=== PATIENT | male | born 1945 | race Caucasian/White ===

== ENCOUNTER 2016-12-11 05:21 | Inpatient (IN) | payer MEDICARE, BC ==
[2016-12-11] MEDS ORDERED: Lactated Ringers 1,000 ML IV ONE (06:45)
[2016-12-11] MEDS ORDERED: Gentamicin 40 MG/ML 2 ML Vial ONE (06:50)
[2016-12-11] MEDS ORDERED: fentaNYL 100 MCG/2 ML SDV ONE ×2 (07:12→08:54)
[2016-12-11] MEDS ORDERED: Midazolam 1 MG/ML 5 ML SDV ONE (07:12)
[2016-12-11] MEDS ORDERED: Propofol 200 MG/20 ML SDV ONE ×2 (07:12→07:13)
[2016-12-11] MEDS ORDERED: Midazolam 1 MG/ML 2 ML SDV ONE (07:47)
[2016-12-11] MEDS ORDERED: Lactated Ringers 1,000 ML IV SCH (08:00)
[2016-12-11] MEDS ORDERED: ceFAZolin 2 GM in Sodium Chloride 0.9% 50 ML IV ONE (09:15)
[2016-12-11] MEDS ORDERED: Tranexamic Acid 1,000 MG in Sodium Chloride 0.9% 50 ML IV SCH ×2 (09:15→10:15)
[2016-12-11] MEDS ORDERED: Zolpidem 5 MG Tab PO PRN (09:23)
[2016-12-11] MEDS ORDERED: Docusate Sodium 100 MG Cap PO PRN (09:23)
[2016-12-11] MEDS ORDERED: Aluminum Hydroxide/Magnesium Hydroxide/Simethicone Susp 30 ML Cup PO PRN (09:23)
[2016-12-11] MEDS ORDERED: Ondansetron 4 MG/2 ML SDV IVPUSH PRN (09:23)
[2016-12-11] MEDS ORDERED: diphenhydrAMINE 50 MG/ML SDV IVPUSH PRN (09:23)
[2016-12-11] MEDS ORDERED: Sennosides 8.6 MG Tab PO PRN (09:23)
[2016-12-11] MEDS ORDERED: Naloxone 0.4 MG/ML SDV IVPUSH PRN (09:23)
[2016-12-11] MEDS ORDERED: Bisacodyl 5 MG Tab PO PRN (09:23)
[2016-12-11] MEDS ORDERED: Magnesium Hydroxide 400 MG/5 ML Susp 30 ML Cup PO PRN (09:23)
[2016-12-11] MEDS ORDERED: ceFAZolin 2 GM in Premix Bag 1 BAG IV SCH (10:00)
[2016-12-11] MEDS ORDERED: fentaNYL 100 MCG/2 ML SDV IVPUSH ONE (10:10)
--- NOTE | 2016-12-11 10:15 | CR ---
Knee 1V or 2V Lt FINDINGS: The patient is status post knee arthroplasty. The prosthetic components appear well-aligne d and seated. There is a small amount of air and fluid within the joint space. IMPRESSION: Status post knee arthroplasty without evidence for complication.
[2016-12-11] MEDS: Ketorolac 30 MG/ML SDV IVPUSH PRN (11:23)
[2016-12-11] MEDS: Morphine 2 MG/ML Syringe IVPUSH PRN ×4 (12:42→22:16)
[2016-12-11] MEDS: traMADol 50 MG Tab PO PRN ×2 (12:42→19:20)
--- NOTE | 2016-12-11 13:56 | OR ---
DATE OF PROCEDURE: 12/11/2016 PREOPERATIVE DIAGNOSIS: Left knee primary osteoarthritis. POSTOPERATIVE DIAGNOSIS: Left knee primary osteoarthritis. PROCEDURE: Left knee total knee arthroplasty. [employer]IC: EB Smith. ANESTHESIA: Spinal plus conscious sedation. FLUID: Lactated Ringer solution. ESTIMATED BLOOD LOSS: 200 mL. COMPLICATIONS: None. SPECIMEN: None. DISCHARGE DISPOSITION: Stable to PACU. INDICATIONS FOR THE PROCEDURE: The patient was seen preoperatively by myself in the clinic. He had failed nonoperative treatment. Preoperative imaging confirmed the above-mentioned diagnosis. Risks and benefits of the procedure were explained to the patient. Informed consent was obtained. DETAILS OF PROCEDURE: The patient was seen preoperatively by myself and the anesthesia staff in the preop holding area where the operative site was marked. He was brought to the operative suite by the anesthesia staff where spinal and conscious sedation were administered. The knee was clipped. There was a well-padded tourniquet placed on the left thigh. The left lower extremity was then prepped and draped in a sterile manner. Time-out was called after the correct patient, correct procedure, the correct site, and antibiotics had begun with appropriate period of time. The left lower extremity was then exsanguinated. Tourniquet was raised to 200 mmHg for 49 minutes and taken down during cementing. A midline incision was made, 3 fingerbreadths proximal to the patella down to the level of the tibial tubercle. Medial parapatellar arthrotomy was then made. Bleeding was controlled with Bovie electrocautery and Aquamantys unit. The infrapatellar fat pad was removed. A full synovectomy was performed. The patella was everted using a towel clip. The knee was flexed. Soft tissue was removed from around the patella. A freehand cut was made and then a 35 mm patella trial was then drilled in place. We then used sharp Homans for retraction and then we reamed the distal femur and then placed the intramedullary guide at 5 degrees valgus, and then this was found to measure at 10. We then placed our pins and then removed the intramedullary guide and made our distal cut. We then used a posterior condylar guide which measured 10. We then drilled the holes and then removed the guide and placed a chamfer block and then made our anterior, posterior, and chamfer cuts. After this had been accomplished, we then used our extramedullary tibial guide and protecting the medial collateral ligament with a zero retractor and lateral collateral ligament with sharp Hohmann, made our tibial cut and then the proximal tibia was removed on block and soft tissue attachments were removed using Bovie electrocautery. I then anteriorized the tibia using blunt Hohmann and then measured a G base plate, pinned this into place and then reamed and tamped the proximal tibia. We then placed our femoral trial and then made our distal notch cuts using the guides in the distal femur and then inserted a 10 and then a #12 tibial polyethylene trial. This provided excellent stability throughout range of motion. We then removed all of our components. I then used interlaminar spreaders and removed posterior osteophytes which were very minimal as well as any redundant capsule and extra meniscus. We then copiously irrigated with saline and then cemented all of the components in place and then kept the knee in extension with the 10 polyethylene trial and allowed and then lowered the tourniquet to 49 minutes. We allowed the cement to dry. There were several bleeders and these were controlled with Bovie electrocautery and the Aquamantys unit as well. We then copiously irrigated with saline and then removed any extra cement using a small osteotome. I then placed my final polyethylene implant which was a 10 mm GH. This provided excellent stability throughout range of motion. I copiously irrigated with saline again and then closed our arthrotomy with two #5 Ethibond as well as 0 Vicryl sutures in a figure-of- eight manner, then irrigated again, and then closed subcutaneous tissues with 2-0 Vicryl pops, followed by skin pricilla, followed by sterile dressing. Tourniquet was removed. The patient was then transferred to hospital bed and taken to the PACU in stable condition. Tal Brandt DO /[id number]
[2016-12-11] MEDS: ceFAZolin 2 GM in Sodium Chloride 0.9% 50 ML IV SCH ×2 (14:43→21:53)
--- NOTE | 2016-12-11 16:13 | PCM.PN ---
- General Info Date of Service: 12/11/16 Functional Status: Reports: pain controlled - Review of Systems Pulmonary: Denies: shortness of breath Musculoskeletal: Reports: joint pain Systems Review Comment:: No acute events since surgery. Moderate left knee pain at this time. No fevers. Able to wiggle toes. No paresthesias. No complaints of chest pain or shortness of breath. - Patient Data Vitals - most recent: Last Vital Signs Temp 36.4 C 12/11/16 14:00 Pulse 63 12/11/16 14:00 Resp 16 12/11/16 14:00 BP 128/84 12/11/16 14:00 Pulse Ox 97 12/11/16 14:00 Weight - most recent: 107.048 kg I&O - last 24 hours: Intake & Output 12/11/16 12/11/16 12/11/16 06:59 14:59 22:59 Intake Total 100 240 Output Total 600 Balance -500 240 Med Orders - Current: Current Medications Al Hydroxide/Mg Hydroxide (Mag-Al Plus) 30 ml PO Q4H PRN PRN Reason: Constipation Aspirin (Ecotrin) 325 mg PO BID JOSE Bisacodyl (Dulcolax) 10 mg PO DAILY PRN PRN Reason: Constipation Diazepam (Valium) 5 mg IVPUSH Q6H PRN PRN Reason: Spasms Last Admin: 12/11/16 11:23 Dose: 5 mg Diphenhydramine HCl (Benadryl) 25 mg IVPUSH Q4H PRN PRN Reason: Itching Docusate Sodium (Colace) 100 mg PO BID PRN PRN Reason: Constipation Lactated Ringer's (Ringers, Lactated) 1,000 mls @ 25 mls/hr IV ONETIME ONE Stop: 12/12/16 22:44 Last Admin: 12/11/16 06:52 Dose: 25 mls/hr Cefazolin Sodium 2 gm/ Sodium (Chloride) 50 mls @ 100 mls/hr IV Q8H JOSE Stop: 12/12/16 06:29 Last Admin: 12/11/16 14:43 Dose: 100 mls/hr Ketorolac Tromethamine (Toradol) 30 mg IVPUSH Q8H PRN PRN Reason: Pain Stop: 12/16/16 09:23 Last Admin: 12/11/16 11:23 Dose: 30 mg Magnesium Hydroxide (Milk Of Magnesia) 30 ml PO BID PRN PRN Reason: Constipation Morphine Sulfate (Morphine) 2 mg IVPUSH Q2H PRN PRN Reason: Pain Last Admin: 12/11/16 14:43 Dose: 2 mg Naloxone HCl (Narcan) 0.1 mg IVPUSH ONETIME PRN PRN Reason: Oversedation Ondansetron HCl (Zofran) 8 mg IVPUSH Q4H PRN PRN Reason: Nausea/Vomiting Last Admin: 12/11/16 11:18 Dose: 8 mg Pantoprazole Sodium (Protonix) 40 mg PO DAILY@0730 [facility] Senna (Senna) 8.6 mg PO BID PRN PRN Reason: Constipation Sodium Chloride (Saline Flush) 10 ml FLUSH DAILY [facility] Tramadol HCl (Ultram) 100 mg PO Q6H PRN PRN Reason: Pain Last Admin: 12/11/16 12:42 Dose: 100 mg Zolpidem Tartrate (Ambien) 5 mg PO BEDTIME PRN PRN Reason: Sleep Discontinued Medications Aspirin (Ecotrin) 325 mg PO BID [facility] Fentanyl (Sublimaze) Confirm Administered Dose 100 mcg .ROUTE .STK-MED ONE Stop: 12/11/16 07:13 Fentanyl (Sublimaze) Confirm Administered Dose 100 mcg .ROUTE .STK-MED ONE Stop: 12/11/16 08:55 Fentanyl (Sublimaze) 100 mcg IVPUSH ONETIME ONE Stop: 12/11/16 10:11 Last Admin: 12/11/16 09:57 Dose: 100 mcg Gentamicin Sulfate (Gentamicin) Confirm Administered Dose 240 mg .ROUTE .STK- MED ONE Stop: 12/11/16 06:51 Last Admin: 12/11/16 08:01 Dose: 240 mg Cefazolin Sodium 2 gm/ Sodium (Chloride) 50 mls @ 100 mls/hr IV ONCALL ONE Stop: 12/11/16 09:44 Last Admin: 12/11/16 07:25 Dose: 100 mls/hr Tranexamic Acid 1,000 mg/ (Sodium Chloride) 60 mls @ 240 mls/hr IV Q3H [facility] Stop: 12/11/16 12:29 Last Admin: 12/11/16 08:35 Dose: 240 mls/hr Lactated Ringer's (Ringers, Lactated) 1,000 mls @ 0 mls/hr IV ASDIRECTED [facility] PRN Reason: KVO Cefazolin Sodium/Dextrose 2 gm (/ Premix) 50 mls @ 100 mls/hr IV Q8H [facility] Stop: 12/12/16 02:29 Last Admin: 12/11/16 12:09 Dose: Not Given Tranexamic Acid 1,000 mg/ (Sodium Chloride) 60 mls @ 240 mls/hr IV Q3H [facility] Stop: 12/11/16 10:29 Last Admin: 12/11/16 09:44 Dose: 240 mls/hr Midazolam HCl (Versed 1 Mg/Ml) Confirm Administered Dose 5 mg .ROUTE .STK-MED ONE Stop: 12/11/16 07:13 Midazolam HCl (Versed 1 Mg/Ml) Confirm Administered Dose 2 mg .ROUTE .STK-MED ONE Stop: 12/11/16 07:48 Pantoprazole Sodium (Protonix) 40 mg PO DAILY [facility] Propofol (Diprivan 20 Ml) Confirm Administered Dose 200 mg .ROUTE .STK-MED ONE Stop: 12/11/16 07:13 Propofol (Diprivan 20 Ml) Confirm Administered Dose 400 mg .ROUTE .STK-MED ONE Stop: 12/11/16 07:14 Sodium Chloride (Saline Flush) 10 ml FLUSH DAILY [facility] - Exam Quality Assessment: No: supplemental oxygen General: alert, oriented, cooperative, no acute distress Neck: supple Lungs: Clear to auscultation, Normal respiratory effort Cardiovascular: Regular Rate, Regular Rhythm, No Murmurs Abdomen: soft, no distension Extremities: no edema, no cyanosis Skin: warm, dry Wound/Incisions: dressing dry and intact, no drainage Psy/Mental Status: alert, normal affect - Problem List & Annotations (1) Status post total left knee replacement SNOMED Code(s): 1376725812933 Code(s): Z96.652 - PRESENCE OF LEFT ARTIFICIAL KNEE JOINT Status: Acute Current Visit: Yes (2) Primary osteoarthritis of left knee SNOMED Code(s): 426714169, 662088097 Code(s): M17.12 - UNILATERAL PRIMARY OSTEOARTHRITIS, LEFT KNEE Status: Chronic Current Visit: Yes (3) Essential hypertension SNOMED Code(s): 00765680 Code(s): I10 - ESSENTIAL (PRIMARY) HYPERTENSION Status: Chronic Current Visit: Yes (4) Hypercholesterolemia SNOMED Code(s): 70261796 Code(s): E78.00 - PURE HYPERCHOLESTEROLEMIA, UNSPECIFIED Status: Chronic Current Visit: Yes - Problem List Review Problem List Initiated/Reviewed/Updated: Yes - My Orders Last 24 Hours: My Active Orders 12/11/16 21:00 Simvastatin [Zocor] 5 mg PO BEDTIME 12/12/16 09:00 Fluticasone Propionate [Flonase] 2 sprays NASBOTH DAILY HCTZ/Triamterene [Maxzide 25-37.5 MG] 1 tab PO DAILY - Plan Plan:: Assessment and plan - Left knee osteoarthritis status post left total knee replacement - doing well since surgery other than moderate pain. Vital signs of been stable. Mild nausea postop has resolved. -Pain control -Physical therapy -Postop cares per orthopedics Essential hypertension - mild elevation but adequate blood pressure control. -Continue home medications Hypercholesterolemia - home medications will be continued Disposition - anticipate discharged home after the hospital stay Case Rose M.D.
[2016-12-11] MEDS ORDERED: Aspirin 325 MG Tab.EC PO SCH (21:00)
[2016-12-11] MEDS: Aspirin 325 MG Tab.EC PO SCH (21:45)
[2016-12-11] MEDS: Simvastatin 20 MG Tab PO SCH (21:45)
[2016-12-11] MEDS ORDERED: diphenhydrAMINE 25 MG Cap PO PRN (22:33)
[2016-12-11] MEDS: Calcium Carbonate 500 MG Tab.Chew PO PRN (22:44)
[2016-12-12] MEDS: traMADol 50 MG Tab PO PRN ×3 (02:29→15:47)
[2016-12-12] MEDS: Ketorolac 30 MG/ML SDV IVPUSH PRN (03:41)
[2016-12-12] MEDS ORDERED: Benzocaine/Cetylpyridinium/Menthol Lozenge MUCMEM PRN (03:44)
[2016-12-12] MEDS: Morphine 2 MG/ML Syringe IVPUSH PRN (04:08)
[2016-12-12] MEDS: ceFAZolin 2 GM in Sodium Chloride 0.9% 50 ML IV SCH (05:36)
[2016-12-12] MEDS ORDERED: Acetaminophen/Codeine 300-30 MG Tab PO PRN (06:50)
[2016-12-12] MEDS: Pantoprazole 40 MG Tab.CR PO SCH (08:09)
[2016-12-12] MEDS: Aspirin 325 MG Tab.EC PO SCH ×2 (08:09→21:04)
[2016-12-12] MEDS ORDERED: Hydrochlorothiazide/Triamterene 25-37.5 MG Cap PO SCH (09:00)
[2016-12-12] MEDS ORDERED: Pantoprazole 40 MG Tab.CR PO SCH (09:00)
[2016-12-12] MEDS ORDERED: Fluticasone Propionate Nasal Spray 16 GM Bottle NASBOTH SCH (09:00)
[2016-12-12] MEDS ORDERED: Sodium Chloride 0.9% 10 ML Syringe FLUSH SCH ×2 (09:00)
[2016-12-12] MEDS: Calcium Carbonate 500 MG Tab.Chew PO PRN (13:28)
--- NOTE | 2016-12-12 17:00 | PCM.PN ---
- General Info Date of Service: 12/12/16 Functional Status: Reports: pain controlled, tolerating diet, ambulating - Review of Systems General: Reports: Fever Musculoskeletal: Reports: joint pain (mild knee pain) Systems Review Comment:: No acute events overnight. The plan was for discharge today but patient spiked a fever this afternoon. Does not feel warm. HR up to 120's and O2 is a little low. Knee pain has been well controlled. No abdominal pain. He does have some dysuria. - Patient Data Vitals - most recent: Last Vital Signs Temp 39.3 C H 12/12/16 16:42 Pulse 114 H 12/12/16 16:42 Resp 16 12/12/16 16:42 BP 117/89 12/12/16 16:42 Pulse Ox 85 L 12/12/16 16:42 Weight - most recent: 107.048 kg I&O - last 24 hours: Intake & Output 12/12/16 12/12/16 12/12/16 06:59 14:59 22:59 Intake Total 955 240 Output Total 150 50 Balance 805 190 Lab Results last 24 hrs: Laboratory Results - last 24 hr 12/12/16 12/12/16 Range/Units 05:37 05:37 WBC 10.8 (4.5-11.0) K/uL RBC 4.16 L (4.30-5.90) M/uL Hgb 13.2 D (12.0-15.0) g/dL Hct 38.4 L (40.0-54.0) % MCV 92 (80-98) fL MCH 32 H (27-31) pg MCHC 34 (32-36) % Plt Count 299 (150-400) K/uL Neut % (Auto) 72 H (36-66) % Lymph % (Auto) 12 L (24-44) % [place] % (Auto) 14 H (2-6) % Eos % (Auto) 2 (2-4) % Baso % (Auto) 0 (0-1) % Sodium 135 L (140-148) mmol/L Potassium 4.2 (3.6-5.2) mmol/L Chloride 100 (100-108) mmol/L Carbon Dioxide 31 (21-32) mmol/L Anion Gap 8.2 (5.0-14.0) mmol/L BUN 18 (7-18) mg/dL Creatinine 1.2 (0.8-1.3) mg/dL Est Cr Clr Drug Dosing 58.30 mL/min Estimated GFR (MDRD) 60 (>60) Glucose 123 H (74-106) mg/dL Calcium 8.5 (8.5-10.1) mg/dL Total Bilirubin 0.7 (0.2-1.0) mg/dL AST 22 (15-37) U/L ALT 23 (12-78) U/L Alkaline Phosphatase 84 (46-116) U/L Total Protein 6.1 L (6.4-8.2) g/dL Albumin 3.0 L (3.4-5.0) g/dL Globulin 3.1 (2.3-3.5) g/dL Albumin/Globulin Ratio 1.0 L (1.2-2.2) Med Orders - Current: Current Medications Acetaminophen/Codeine Phosphate (Tylenol With Codeine No.3 300mg/30mg) 2 tab PO Q4H PRN PRN Reason: Pain Al Hydroxide/Mg Hydroxide (Mag-Al Plus) 30 ml PO Q4H PRN PRN Reason: Constipation Last Admin: 12/11/16 21:52 Dose: 30 ml Aspirin (Ecotrin) 325 mg PO BID JOSE Last Admin: 12/12/16 08:09 Dose: 325 mg Benzocaine/Menthol (Cepacol Sore Throat) 1 lozenge MUCMEM ASDIRECTED PRN PRN Reason: Sore Throat Last Admin: 12/12/16 04:09 Dose: 1 fatemeh Bisacodyl (Dulcolax) 10 mg PO DAILY PRN PRN Reason: Constipation Calcium Carbonate/Glycine (Tums) 1,000 mg PO Q2H PRN PRN Reason: Indigestion Last Admin: 12/12/16 13:28 Dose: 1,000 mg Diazepam (Valium) 5 mg IVPUSH Q6H PRN PRN Reason: Spasms Last Admin: 12/11/16 11:23 Dose: 5 mg Diphenhydramine HCl (Benadryl) 25 mg IVPUSH Q4H PRN PRN Reason: Itching Diphenhydramine HCl (Benadryl) 50 mg PO BEDTIME PRN PRN Reason: Sleep Last Admin: 12/11/16 22:44 Dose: 50 mg Docusate Sodium (Colace) 100 mg PO BID PRN PRN Reason: Constipation Last Admin: 12/11/16 21:52 Dose: 100 mg Fluticasone Propionate (Flonase) 0 gm NASBOTH DAILY [facility] Last Admin: 12/12/16 08:09 Dose: 1 spray Lactated Ringer's (Ringers, Lactated) 1,000 mls @ 25 mls/hr IV ONETIME ONE Stop: 12/12/16 22:44 Last Admin: 12/11/16 06:52 Dose: 25 mls/hr Ketorolac Tromethamine (Toradol) 30 mg IVPUSH Q8H PRN PRN Reason: Pain Stop: 12/16/16 09:23 Last Admin: 12/12/16 03:41 Dose: 30 mg Magnesium Hydroxide (Milk Of Magnesia) 30 ml PO BID PRN PRN Reason: Constipation Morphine Sulfate (Morphine) 2 mg IVPUSH Q2H PRN PRN Reason: Pain Last Admin: 12/12/16 04:08 Dose: 2 mg Naloxone HCl (Narcan) 0.1 mg IVPUSH ONETIME PRN PRN Reason: Oversedation Ondansetron HCl (Zofran) 8 mg IVPUSH Q4H PRN PRN Reason: Nausea/Vomiting Last Admin: 12/11/16 11:18 Dose: 8 mg Pantoprazole Sodium (Protonix) 40 mg PO DAILY@0730 [facility] Last Admin: 12/12/16 08:09 Dose: 40 mg Senna (Senna) 8.6 mg PO BID PRN PRN Reason: Constipation Simvastatin (Zocor) 5 mg PO BEDTIME [facility] Last Admin: 12/11/16 21:45 Dose: 5 mg Sodium Chloride (Saline Flush) 10 ml FLUSH DAILY [facility] Last Admin: 12/12/16 08:09 Dose: 10 ml Tramadol HCl (Ultram) 100 mg PO Q6H PRN PRN Reason: Pain Last Admin: 12/12/16 15:47 Dose: 100 mg Triamterene/HCTZ (Dyazide 25-37.5 Mg) 1 each PO DAILY [facility] Last Admin: 12/12/16 08:09 Dose: 1 each Zolpidem Tartrate (Ambien) 5 mg PO BEDTIME PRN PRN Reason: Sleep Discontinued Medications Aspirin (Ecotrin) 325 mg PO BID [facility] Fentanyl (Sublimaze) Confirm Administered Dose 100 mcg .ROUTE .STK-MED ONE Stop: 12/11/16 07:13 Fentanyl (Sublimaze) Confirm Administered Dose 100 mcg .ROUTE .STK-MED ONE Stop: 12/11/16 08:55 Fentanyl (Sublimaze) 100 mcg IVPUSH ONETIME ONE Stop: 12/11/16 10:11 Last Admin: 12/11/16 09:57 Dose: 100 mcg Gentamicin Sulfate (Gentamicin) Confirm Administered Dose 240 mg .ROUTE .STK- MED ONE Stop: 12/11/16 06:51 Last Admin: 12/11/16 08:01 Dose: 240 mg Cefazolin Sodium 2 gm/ Sodium (Chloride) 50 mls @ 100 mls/hr IV ONCALL ONE Stop: 12/11/16 09:44 Last Admin: 12/11/16 07:25 Dose: 100 mls/hr Tranexamic Acid 1,000 mg/ (Sodium Chloride) 60 mls @ 240 mls/hr IV Q3H [facility] Stop: 12/11/16 12:29 Last Admin: 12/11/16 08:35 Dose: 240 mls/hr Lactated Ringer's (Ringers, Lactated) 1,000 mls @ 0 mls/hr IV ASDIRECTED [facility] PRN Reason: KVO Cefazolin Sodium/Dextrose 2 gm (/ Premix) 50 mls @ 100 mls/hr IV Q8H [facility] Stop: 12/12/16 02:29 Last Admin: 12/11/16 12:09 Dose: Not Given Tranexamic Acid 1,000 mg/ (Sodium Chloride) 60 mls @ 240 mls/hr IV Q3H [facility] Stop: 12/11/16 10:29 Last Admin: 12/11/16 09:44 Dose: 240 mls/hr Cefazolin Sodium 2 gm/ Sodium (Chloride) 50 mls @ 100 mls/hr IV Q8H [facility] Stop: 12/12/16 06:29 Last Admin: 12/12/16 05:36 Dose: 100 mls/hr Midazolam HCl (Versed 1 Mg/Ml) Confirm Administered Dose 5 mg .ROUTE .STK-MED ONE Stop: 12/11/16 07:13 Midazolam HCl (Versed 1 Mg/Ml) Confirm Administered Dose 2 mg .ROUTE .STK-MED ONE Stop: 12/11/16 07:48 Pantoprazole Sodium (Protonix) 40 mg PO DAILY [facility] Propofol (Diprivan 20 Ml) Confirm Administered Dose 200 mg .ROUTE .STK-MED ONE Stop: 12/11/16 07:13 Propofol (Diprivan 20 Ml) Confirm Administered Dose 400 mg .ROUTE .STK-MED ONE Stop: 12/11/16 07:14 Sodium Chloride (Saline Flush) 10 ml FLUSH DAILY JO[facility] - Exam Quality Assessment: urine catheter. No: supplemental oxygen General: alert, oriented, cooperative, no acute distress Neck: supple Lungs: Clear to auscultation, Normal respiratory effort Cardiovascular: Regular Rhythm, Tachycardia. No: Murmurs Abdomen: soft, no tenderness, no distension Extremities: no edema, normal pulses Skin: warm, dry Wound/Incisions: no drainage. No: erythema Psy/Mental Status: alert, normal affect - Problem List & Annotations (1) Status post total left knee replacement SNOMED Code(s): 6384321909268 Code(s): Z96.652 - PRESENCE OF LEFT ARTIFICIAL KNEE JOINT Status: Acute Current Visit: Yes (2) Primary osteoarthritis of left knee SNOMED Code(s): 671726806, 908329805 Code(s): M17.12 - UNILATERAL PRIMARY OSTEOARTHRITIS, LEFT KNEE Status: Chronic Current Visit: Yes (3) Essential hypertension SNOMED Code(s): 17745138 Code(s): I10 - ESSENTIAL (PRIMARY) HYPERTENSION Status: Chronic Current Visit: Yes (4) Hypercholesterolemia SNOMED Code(s): 44901592 Code(s): E78.00 - PURE HYPERCHOLESTEROLEMIA, UNSPECIFIED Status: Chronic Current Visit: Yes - Problem List Review Problem List Initiated/Reviewed/Updated: Yes - My Orders Last 24 Hours: My Active Orders 12/11/16 21:00 Simvastatin [Zocor] 5 mg PO BEDTIME 12/11/16 22:32 Calcium Carbonate [Tums] 1,000 mg PO Q2H PRN 12/11/16 22:33 diphenhydrAMINE [Benadryl] 50 mg PO BEDTIME PRN 12/12/16 03:44 Benzocaine/Cetylpyrd/Menthol [Cepacol Sore Throat] 1 lozenge MUCMEM ASDIRECTED PRN 12/12/16 09:00 Fluticasone Propionate [Flonase] 0 gm NASBOTH DAILY HCTZ/Triamterene [Dyazide 25-37.5 MG] 1 each PO DAILY 12/12/16 16:57 CXR [Chest 1V Frontal] [CR] Routine UA W/MICROSCOPIC [URIN] Routine Acetaminophen [Tylenol] 650 mg PO Q4H PRN - Plan Plan:: Assessment and plan - Fever - high fever with associated tachycardia. No symptoms other than mild dysuria. -UA -CXR -APAP Left knee osteoarthritis status post left total knee replacement - doing well since surgery, pain well controlled. -Pain control -Physical therapy -Postop cares per orthopedics Essential hypertension - mild elevation but adequate blood pressure control. -Continue home medications Hypercholesterolemia - home medications will be continued Disposition - anticipate discharged home after the hospital stay Case Rose M.D.
[2016-12-12] MEDS: Acetaminophen 325 MG Tab PO PRN ×2 (17:17→21:31)
[2016-12-12] MEDS: Simvastatin 20 MG Tab PO SCH (21:03)
[2016-12-13] MEDS ORDERED: traMADol 50 MG Tab ONE (05:53)
[2016-12-13] MEDS: traMADol 50 MG Tab PO PRN (05:54)
[2016-12-13 05:58] VITALS: BP 130/94
[2016-12-13] MEDS: Pantoprazole 40 MG Tab.CR PO SCH (08:17)
[2016-12-13] MEDS: Acetaminophen 325 MG Tab PO PRN (08:17)
[2016-12-13] MEDS ORDERED: Naproxen 250 MG Tab PO SCH (09:00)
--- NOTE | 2016-12-13 09:47 | PCM.OC ---
Ortho Clinic - Subjective - Subjective Date of Service: 12/12/16 Pain Score (Numeric/FACES): 2 Pain Assessment: Follow-Up Assessment Vital Signs: Last Vital Signs Temp 37.6 C 12/13/16 05:56 Pulse 98 12/13/16 05:56 Resp 20 12/13/16 05:56 BP 130/94 H 12/13/16 05:56 Pulse Ox 88 L 12/13/16 05:56 Home Medications: Home Meds Acetaminophen [Tylenol Extra Strength] 2 tab PO DAILY 11/22/16 [History] Fluticasone Propionate [Flonase] 2 sprays NASBOTH DAILY 11/22/16 [History] HCTZ/Triamterene [Maxzide 25-37.5 MG] 1 tab PO DAILY 11/22/16 [History] Ibuprofen/Diphenhydramine HCl [Advil Pm Liqui-Gels] 2 tab PO BEDTIME 11/22/16 [ History] Omeprazole 20 mg PO DAILY 11/22/16 [History] Simvastatin [Zocor] 5 mg PO BEDTIME 11/22/16 [History] Triamcinolone Acetonide [Triamcinolone Acetonide 0.1% Oint] 1 strip TOP TID PRN 11/22/16 [History] Acetaminophen/Codeine [Tylenol with Codeine No.3 300MG/30MG] 2 tab PO Q4H PRN # 90 tablet 12/12/16 [Rx] Aspirin [Ecotrin] 325 mg PO BID #60 tab.ec 12/12/16 [Rx] traMADol HCl [Ultram] 50 mg PO Q6HR #90 tablet 12/12/16 [Rx] Naproxen Sodium 220 mg PO BID 12/13/16 [History] Tamsulosin HCl [Flomax] 0.4 mg PO DAILY #90 cap.er.24h 12/13/16 [Rx] Ortho Clinic - Objective - Objective Height: 1.78 m Weight: 236 lb Ortho Clinic - Past Med Histry HEENT History: Reports: Cataract, Impaired Vision Cardiovascular History: Reports: High Cholesterol, Hypertension Gastrointestinal History: Reports: Colon Polyp, GERD, Hemorrhoids Genitourinary History: Reports: Prostate Disorder Musculoskeletal History: Reports: Arthritis, Fracture, Other (See Below) Other Musculoskeletal History: bilateral knee pain Endocrine/Metabolic History: Reports: Obesity/BMI 30+ Oncologic (Cancer) History: Reports: Prostate Dermatologic History: Reports: Psoriasis - Infectious Disease History Infectious Disease History: Reports: Chicken Pox, Measles - Past Surgical History HEENT Surgical History: Reports: Cataract Surgery, Tonsillectomy Cardiovascular Surgical History: Reports: None GI Surgical History: Reports: Colonoscopy, EGD Male Surgical History: Reports: Prostate Biopsy, Other (See Below) Other Male Surgeries/Procedures: "prostate surgery" Endocrine Surgical History: Reports: None Musculoskeletal Surgical History: Reports: Shoulder Surgery, Other (See Below) Other Musculoskeletal Surgeries/Procedures:: right wrist surg. pin, plate, and screw Oncologic Surgical History: Reports: None Dermatological Surgical History: Reports: None Ortho Clinic - AP - Problems List (1) Status post total left knee replacement SNOMED Code(s): 0339954657448 ICD Code: Z96.652 - PRESENCE OF LEFT ARTIFICIAL KNEE JOINT Status: Acute Current Visit: Yes - Plan Plan: Pavel is a pleasant 71-year-old male who is status postop day 1 of left total knee replacement. He is doing very well. He is working with PT OT. He is ambulate with no difficulties at this time. Pain is under control using Tylenol 3 and Ultram alternating. assessment: Dressing is clean, dry, and intact. [place] are in place. Patient has good range of motion. Distal motor and sensory examination is grossly intact. plan: At this time will plan for discharge today. We will send him home on Tylenol or 3 Ultram and aspirin 2 a day. He'll follow up with PT OT. He will also make an appointment with us in 2 weeks to be seen in ortho clinic. after being notified later patient did run low-grade fevers throughout the evening and was not discharged. Tylenol was given to bring the fever down. We will recheck him the next day.
--- NOTE | 2016-12-13 09:49 | PCM.DCSUM1 ---
Discharge Summary - Hospital Course Free Text/Narrative:: Pavel is a pleasant 71-year-old male who is status postop day 2 of the left total knee replacement. He is doing very well. His fever has come down. He is doing well with physical therapy. Pain management is under control at this time with oral pain medication. Assessment: Dressing is clean dry and intact. Oscar are present. Distal motor and sensory examinations grossly intact. Patient has good range of motion with full extension and 90 of flexion. plan: At this time we will discharge. He was given a prescription for Ultram and Tylenol #3. Patient will also be able to restart naproxen at home. We'll also give him aspirin 325 twice a day. He'll make a followup appointment with us in 2 weeks. You also continue with PT OT on an outpatient basis. He'll call us if he has any issues. - Discharge Data Discharge Date: 12/13/16 Discharge Disposition: Home, Self-Care 01 Condition: Good - Discharge Diagnosis/Problem(s) (1) Status post total left knee replacement SNOMED Code(s): [id number] ICD Code: Z96.652 - PRESENCE OF LEFT ARTIFICIAL KNEE JOINT Status: Acute Current Visit: Yes - Patient Summary/Data Consults: Consultations 12/11/16 09:23 Consult to Physician [CONS] Routine Consulting Provider: Case Rose Call Completed to Consulting Physician: Yes OT Evaluation and Treatment [CONS] Routine Please Evaluate and Treat. OT Reason for Consult: Strengthening This query below is only for informational purposes and is not editable. PT Evaluation and Treatment [CONS] Routine Please Evaluate and Treat. PT Reason for Consult: Strengthening This query below is only for informational purposes and is not editable. - Patient Instructions Diet: Regular Diet as Tolerated Activity: As Tolerated Driving: Do Not Drive Showering/Bathing: May Shower Wound/Incision Care: Keep Operative Site/Wound Site Clean and Dry, Change Dressing Daily Notify Provider of: Fever, Increased Pain, Swelling and Redness, Drainage, Nausea and/or Vomiting - Discharge Plan Prescriptions/Med Rec: traMADol HCl [Ultram] 50 mg PO Q6HR #90 tablet Acetaminophen/Codeine [Tylenol with Codeine No.3 300MG/30MG] 2 tab PO Q4H PRN # 90 tablet PRN Reason: Pain Aspirin [Ecotrin] 325 mg PO BID #60 tab.ec Tamsulosin HCl [Flomax] 0.4 mg PO DAILY #90 cap.er.24h Home Medications: Home Meds Acetaminophen [Tylenol Extra Strength] 2 tab PO DAILY 11/22/16 [History] Fluticasone Propionate [Flonase] 2 sprays NASBOTH DAILY 11/22/16 [History] HCTZ/Triamterene [Maxzide 25-37.5 MG] 1 tab PO DAILY 11/22/16 [History] Ibuprofen/Diphenhydramine HCl [Advil Pm Liqui-Gels] 2 tab PO BEDTIME 11/22/16 [ History] Omeprazole 20 mg PO DAILY 11/22/16 [History] Simvastatin [Zocor] 5 mg PO BEDTIME 11/22/16 [History] Triamcinolone Acetonide [Triamcinolone Acetonide 0.1% Oint] 1 strip TOP TID PRN 11/22/16 [History] Acetaminophen/Codeine [Tylenol with Codeine No.3 300MG/30MG] 2 tab PO Q4H PRN # 90 tablet 12/12/16 [Rx] Aspirin [Ecotrin] 325 mg PO BID #60 tab.ec 12/12/16 [Rx] traMADol HCl [Ultram] 50 mg PO Q6HR #90 tablet 12/12/16 [Rx] Naproxen Sodium 220 mg PO BID 12/13/16 [History] Tamsulosin HCl [Flomax] 0.4 mg PO DAILY #90 cap.er.24h 12/13/16 [Rx] - Discharge Summary/Plan Comment DC Time >30 min.: Yes - Patient Data Vitals - Most Recent: Last Vital Signs Temp 37.6 C 12/13/16 05:56 Pulse 98 12/13/16 05:56 Resp 20 12/13/16 05:56 BP 130/94 H 12/13/16 05:56 Pulse Ox 88 L 12/13/16 05:56 Weight - Most Recent: 236 lb I&O - Last 24 hours: Intake & Output 12/12/16 12/13/16 12/13/16 22:59 06:59 14:59 Intake Total 2500 240 Output Total 975 Balance 1525 240 Lab Results - Last 24 hrs: Laboratory Results - last 24 hr 12/12/16 12/13/16 12/13/16 Range/Units 17:06 05:00 05:00 WBC 12.1 H (4.5-11.0) K/uL RBC 3.94 L (4.30-5.90) M/uL Hgb 12.4 (12.0-15.0) g/dL Hct 36.6 L (40.0-54.0) % MCV 93 (80-98) fL MCH 32 H (27-31) pg MCHC 34 (32-36) % Plt Count 282 (150-400) K/uL Neut % (Auto) 67 H (36-66) % Lymph % (Auto) 13 L (24-44) % [place] % (Auto) 15 H (2-6) % Eos % (Auto) 5 H (2-4) % Baso % (Auto) 0 (0-1) % Sodium 134 L (140-148) mmol/L Potassium 4.3 (3.6-5.2) mmol/L Chloride 99 L (100-108) mmol/L Carbon Dioxide 30 (21-32) mmol/L Anion Gap 9.3 (5.0-14.0) mmol/L BUN 16 (7-18) mg/dL Creatinine 1.1 (0.8-1.3) mg/dL Est Cr Clr Drug Dosing 63.60 mL/min Estimated GFR (MDRD) > 60 (>60) Glucose 115 H (74-106) mg/dL Calcium 9.1 (8.5-10.1) mg/dL Total Bilirubin 0.8 (0.2-1.0) mg/dL AST 27 (15-37) U/L ALT 19 (12-78) U/L Alkaline Phosphatase 80 (46-116) U/L Total Protein 6.3 L (6.4-8.2) g/dL Albumin 3.0 L (3.4-5.0) g/dL Globulin 3.3 (2.3-3.5) g/dL Albumin/Globulin Ratio 0.9 L (1.2-2.2) Urine Color Yellow Urine Appearance Slightly cloudy Urine pH 6.0 (4.5-8.0) Ur Specific [place] 1.010 (1.008-1.030) Urine Protein Negative (NEGATIVE) mg/dL Urine Glucose (UA) Normal (NEGATIVE) mg/dL Urine Ketones Negative (NEGATIVE) mg/dL Urine Occult Blood Trace (NEGATIVE) Urine Nitrite Negative (NEGAITVE) Urine Bilirubin Negative (NEGATIVE) Urine Urobilinogen Normal (NORMAL) mg/dL Ur Leukocyte Esterase Small (NEGATIVE) Urine RBC 0-5 (0-5) Urine WBC 0-5 (0-5) Ur Epithelial Cells Not seen Amorphous Sediment Not seen Urine Bacteria Not seen Urine Mucus Not seen Med Orders - Current: Current Medications Acetaminophen (Tylenol) 650 mg PO Q4H PRN PRN Reason: Pain/Fever Last Admin: 12/13/16 08:17 Dose: 650 mg Acetaminophen/Codeine Phosphate (Tylenol With Codeine No.3 300mg/30mg) 2 tab PO Q4H PRN PRN Reason: Pain Al Hydroxide/Mg Hydroxide (Mag-Al Plus) 30 ml PO Q4H PRN PRN Reason: Constipation Last Admin: 12/11/16 21:52 Dose: 30 ml Aspirin (Ecotrin) 325 mg PO BID [facility] Last Admin: 12/12/16 21:04 Dose: 325 mg Benzocaine/Menthol (Cepacol Sore Throat) 1 lozenge MUCMEM ASDIRECTED PRN PRN Reason: Sore Throat Last Admin: 12/12/16 04:09 Dose: 1 fatemeh Bisacodyl (Dulcolax) 10 mg PO DAILY PRN PRN Reason: Constipation Calcium Carbonate/Glycine (Tums) 1,000 mg PO Q2H PRN PRN Reason: Indigestion Last Admin: 12/12/16 13:28 Dose: 1,000 mg Diazepam (Valium) 5 mg IVPUSH Q6H PRN PRN Reason: Spasms Last Admin: 12/11/16 11:23 Dose: 5 mg Diphenhydramine HCl (Benadryl) 25 mg IVPUSH Q4H PRN PRN Reason: Itching Diphenhydramine HCl (Benadryl) 50 mg PO BEDTIME PRN PRN Reason: Sleep Last Admin: 12/11/16 22:44 Dose: 50 mg Docusate Sodium (Colace) 100 mg PO BID PRN PRN Reason: Constipation Last Admin: 12/11/16 21:52 Dose: 100 mg Fluticasone Propionate (Flonase) 0 gm NASBOTH DAILY [facility] Last Admin: 12/12/16 08:09 Dose: 1 spray Ketorolac Tromethamine (Toradol) 30 mg IVPUSH Q8H PRN PRN Reason: Pain Stop: 12/16/16 09:23 Last Admin: 12/12/16 03:41 Dose: 30 mg Magnesium Hydroxide (Milk Of Magnesia) 30 ml PO BID PRN PRN Reason: Constipation Morphine Sulfate (Morphine) 2 mg IVPUSH Q2H PRN PRN Reason: Pain Last Admin: 12/12/16 04:08 Dose: 2 mg Naloxone HCl (Narcan) 0.1 mg IVPUSH ONETIME PRN PRN Reason: Oversedation Naproxen (Naprosyn) 250 mg PO BID [facility] Ondansetron HCl (Zofran) 8 mg IVPUSH Q4H PRN PRN Reason: Nausea/Vomiting Last Admin: 12/11/16 11:18 Dose: 8 mg Pantoprazole Sodium (Protonix) 40 mg PO DAILY@0730 [facility] Last Admin: 12/13/16 08:17 Dose: 40 mg Senna (Senna) 8.6 mg PO BID PRN PRN Reason: Constipation Simvastatin (Zocor) 5 mg PO BEDTIME [facility] Last Admin: 12/12/16 21:03 Dose: 5 mg Sodium Chloride (Saline Flush) 10 ml FLUSH DAILY [facility] Last Admin: 12/12/16 08:09 Dose: 10 ml Tramadol HCl (Ultram) 100 mg PO Q6H PRN PRN Reason: Pain Last Admin: 12/13/16 05:54 Dose: 100 mg Triamterene/HCTZ (Dyazide 25-37.5 Mg) 1 each PO DAILY [facility] Last Admin: 12/12/16 08:09 Dose: 1 each Zolpidem Tartrate (Ambien) 5 mg PO BEDTIME PRN PRN Reason: Sleep Discontinued Medications Aspirin (Ecotrin) 325 mg PO BID [facility] Fentanyl (Sublimaze) Confirm Administered Dose 100 mcg .ROUTE .STK-MED ONE Stop: 12/11/16 07:13 Fentanyl (Sublimaze) Confirm Administered Dose 100 mcg .ROUTE .STK-MED ONE Stop: 12/11/16 08:55 Fentanyl (Sublimaze) 100 mcg IVPUSH ONETIME ONE Stop: 12/11/16 10:11 Last Admin: 12/11/16 09:57 Dose: 100 mcg Gentamicin Sulfate (Gentamicin) Confirm Administered Dose 240 mg .ROUTE .STK- MED ONE Stop: 12/11/16 06:51 Last Admin: 12/11/16 08:01 Dose: 240 mg Cefazolin Sodium 2 gm/ Sodium (Chloride) 50 mls @ 100 mls/hr IV ONCALL ONE Stop: 12/11/16 09:44 Last Admin: 12/11/16 07:25 Dose: 100 mls/hr Tranexamic Acid 1,000 mg/ (Sodium Chloride) 60 mls @ 240 mls/hr IV Q3H [facility] Stop: 12/11/16 12:29 Last Admin: 12/11/16 08:35 Dose: 240 mls/hr Lactated Ringer's (Ringers, Lactated) 1,000 mls @ 0 mls/hr IV ASDIRECTED [facility] PRN Reason: KVO Lactated Ringer's (Ringers, Lactated) 1,000 mls @ 25 mls/hr IV ONETIME ONE Stop: 12/12/16 22:44 Last Admin: 12/11/16 06:52 Dose: 25 mls/hr Cefazolin Sodium/Dextrose 2 gm (/ Premix) 50 mls @ 100 mls/hr IV Q8H [facility] Stop: 12/12/16 02:29 Last Admin: 12/11/16 12:09 Dose: Not Given Tranexamic Acid 1,000 mg/ (Sodium Chloride) 60 mls @ 240 mls/hr IV Q3H [facility] Stop: 12/11/16 10:29 Last Admin: 12/11/16 09:44 Dose: 240 mls/hr Cefazolin Sodium 2 gm/ Sodium (Chloride) 50 mls @ 100 mls/hr IV Q8H [facility] Stop: 12/12/16 06:29 Last Admin: 12/12/16 05:36 Dose: 100 mls/hr Midazolam HCl (Versed 1 Mg/Ml) Confirm Administered Dose 5 mg .ROUTE .STK-MED ONE Stop: 12/11/16 07:13 Midazolam HCl (Versed 1 Mg/Ml) Confirm Administered Dose 2 mg .ROUTE .STK-MED ONE Stop: 12/11/16 07:48 Pantoprazole Sodium (Protonix) 40 mg PO DAILY [facility] Propofol (Diprivan 20 Ml) Confirm Administered Dose 200 mg .ROUTE .STK-MED ONE Stop: 12/11/16 07:13 Propofol (Diprivan 20 Ml) Confirm Administered Dose 400 mg .ROUTE .STK-MED ONE Stop: 12/11/16 07:14 Sodium Chloride (Saline Flush) 10 ml FLUSH DAILY [facility] Tramadol HCl (Ultram) Confirm Administered Dose 100 mg .ROUTE .STK-MED ONE Stop: 12/13/16 05:54 Last Admin: 12/13/16 08:27 Dose: Not Given *Q Meaningful Use (DIS) - VTE *Q VTE Criteria *Q: - Stroke *Q Stroke Criteria *Q: - AMI *Q AMI Criteria *Q:
--- NOTE | 2016-12-13 11:59 | CR ---
Portable chest There is linear atelectasis in the lung bases bilaterally. The heart and vascular structures are wit hin normal limits. There are no infiltrates or effusions. Impression: 1. Linear basilar atelectasis. 2. No acute findings.
== END 2016-12-13 10:15 | disposition home or self-care (01) | DRG 470 ==
LOC: JP.SDS 05:21 → JP.MS 05:21 → EDSTATUS 09:00 → JP.MS 10:10
PROVIDERS: ADMIT Orthopaedic Surgery; ATTEND Orthopaedic Surgery
PROC: 0SRD0J9 Replacement of Left Knee Joint with Synthetic Substitute, Cemented, Open Approach (ICD-10-PCS; principal; 2016-12-11)
DX: M17.12 Unilateral primary osteoarthritis, left knee (principal); I10 Essential (primary) hypertension; K21.9 Gastro-esophageal reflux disease without esophagitis; E66.9 Obesity, unspecified; E78.00 Pure hypercholesterolemia, unspecified; R50.9 Fever, unspecified
CPT/HCPCS: 36415; 71010; 71010-26; 73560-26-LT; 73560-LT; 80053; 81001; 85025; 94762; 97110-GP; 97116-GP; 97161-GP; 97165-GO; 97530-GP; 97535-GP; A9270-GY; C1713; C1776; J0690; J1580; J1885; J2250; J2270; J2405; J2704; J3010; J3360; J7050; J7120

== ENCOUNTER 2017-01-26 12:59 | Emergency (ER) | payer MEDICARE, BC ==
[2017-01-26 13:30] VITALS: BP 146/81
--- NOTE | 2017-01-26 16:09 | EDM.PDOC ---
ED HPI GENERAL MEDICAL PROBLEM - General Chief Complaint: General Stated Complaint: RASH/FEVER/HEADACHE/NAUSEA Time Seen by Provider: 01/26/17 13:38 Source of Information: Reports: Patient History Limitations: Reports: No Limitations - History of Present Illness INITIAL COMMENTS - FREE TEXT/NARRATIVE: History of present illness: [71-year-old male had a total left knee on December 11. He is presenting now feeling unwell with a headache and having subjective chills and fever although his temperature here is been normal. He's also noted that his left knee has become warm over the last couple of days. He's also noticed hive-like rash on his right lower extremity. The rash doesn't bother him. His significant other thinks that the erythema that courses along the incision of the total knee has enlarged as well in the last couple of days. There is been no pustular discharge. He also has hayfever and has been sneezing more lately but I think that's unrelated to his presentation.] Review of systems: As per history of present illness and below otherwise all systems reviewed and negative. Past medical history: As per history of present illness and as reviewed below otherwise noncontributory. Surgical history: As per history of present illness and as reviewed below otherwise noncontributory. Social history: No reported history of drug or alcohol abuse. Family history: As per history of present illness and as reviewed below otherwise noncontributory. Physical exam: HEENT: Atraumatic, normocephalic, pupils reactive, negative for conjunctival pallor or scleral icterus, mucous membranes moist, throat clear, neck supple, nontender, trachea midline. Lungs: Clear to auscultation, breath sounds equal bilaterally Heart: S1S2, regular, negative Abdomen: Soft, nondistended, nontender. Pelvis: Stable nontender. Genitourinary: Deferred. Rectal: Deferred. Extremities: Examination of the left knee does indeed reveal that it is warm to touch and there is erythema following along the course of the incision it is slightly swollen but the significant other states that is not more swollen unusual. He has full range of motion and does not seem to have any discomfort with this. Neuro: Awake, alert, oriented. Exam nonfocal. Diagnostics: [CBC complete medical panel CRP and sedimentation rate were done along with a UA and chest x-ray. The only thing of significance is the elevated sedimentation rate of 39 in the CRP is above 5. Chest x-ray looked good and the urinalysis also looked clean.] Therapeutics: [] Impression: [Cellulitis left knee] Plan: [I spoke with Dr. Brandt's visitor service assistant who spoke with him and our plan at this point will be to place him on Keflex 500 mg twice a day for 10 days and also obtain 2 blood cultures and they will call him on Saturday and see how he is doing and perhaps see him then. I think were suspecting this a localized cellulitis and that it is not a deep infection involving the actual knee itself. ] Definitive disposition and diagnosis as appropriate pending reevaluation and review of above. Left Knee Pain Score (Numeric/FACES): 2 - Related Data Allergies Allergy/AdvReac Type Severity Reaction Status Date / Time peanut Allergy Other Verified 01/26/17 13:33 shellfish derived Allergy Other Verified 01/26/17 13:33 Sulfa (Sulfonamide Allergy Other Verified 01/26/17 13:33 Antibiotics) Home Meds: Home Meds Acetaminophen [Tylenol Extra Strength] 2 tab PO Q6H PRN 11/22/16 [History] Fluticasone Propionate [Flonase] 2 sprays NASBOTH DAILY 11/22/16 [History] HCTZ/Triamterene [Maxzide 25-37.5 MG] 1 tab PO DAILY 11/22/16 [History] Omeprazole 20 mg PO DAILY 11/22/16 [History] Simvastatin [Zocor] 5 mg PO BEDTIME 11/22/16 [History] traMADol HCl [Ultram] 50 mg PO Q6HR #90 tablet 12/12/16 [Rx] Tamsulosin HCl [Flomax] 0.4 mg PO DAILY #90 cap.er.24h 12/13/16 [Rx] Aspirin [Ecotrin] 325 mg PO DAILY 01/26/17 [History] Past Medical History HEENT History: Reports: Cataract, Impaired Vision Cardiovascular History: Reports: High Cholesterol, Hypertension Gastrointestinal History: Reports: Colon Polyp, GERD, Hemorrhoids Genitourinary History: Reports: Prostate Disorder Musculoskeletal History: Reports: Arthritis, Fracture, Other (See Below) Other Musculoskeletal History: bilateral knee pain Endocrine/Metabolic History: Reports: Obesity/BMI 30+ Oncologic (Cancer) History: Reports: Prostate Dermatologic History: Reports: Psoriasis - Infectious Disease History Infectious Disease History: Reports: Chicken Pox - Past Surgical History HEENT Surgical History: Reports: Cataract Surgery, Tonsillectomy Cardiovascular Surgical History: Reports: None GI Surgical History: Reports: Colonoscopy, EGD Male Surgical History: Reports: Prostate Biopsy, Other (See Below) Other Male Surgeries/Procedures: "prostate surgery" Endocrine Surgical History: Reports: None Musculoskeletal Surgical History: Reports: Knee Replacement, Shoulder Surgery, Other (See Below) Other Musculoskeletal Surgeries/Procedures:: right wrist surg. pin, plate, and screw R knee replacement December 14/2017 Oncologic Surgical History: Reports: None Dermatological Surgical History: Reports: None Social & Family History - Tobacco Use Smoking Status *Q: Never Smoker Years of Tobacco use: 40 Packs/Tins Daily: 0.5 Used Tobacco, but Quit: Yes Month Tobacco Last Used: July Second Hand Smoke Exposure: No - Caffeine Use Caffeine Use: Reports: Soda - Alcohol Use Days Per Week of Alcohol Use: 7 Number of Drinks Per Day: 1 Total Drinks Per Week: 7 - Recreational Drug Use Recreational Drug Use: No ED ROS GENERAL - Review of Systems Review Of Systems: ROS reveals no pertinent complaints other than HPI. ED EXAM, GENERAL - Physical Exam Exam: See Below Course - Vital Signs Last Recorded V/S: Last Vital Signs Temp 36.8 C 01/26/17 13:46 Pulse 53 L 01/26/17 13:46 Resp 14 01/26/17 13:46 BP 146/81 H 01/26/17 13:46 Pulse Ox 95 01/26/17 13:46 - Orders/Labs/Meds Orders: Active Orders 24 hr Category Date Time Status Chest 2V [CR] Stat Exams 01/26/17 13:43 Taken Knee 3V Lt [CR] Stat Exams 01/26/17 13:46 Taken CULTURE BLOOD [BC] Stat Lab 01/26/17 15:54 Ordered CULTURE BLOOD [BC] Stat Lab 01/26/17 15:55 Ordered Labs: Laboratory Tests 01/26/17 01/26/17 01/26/17 Range/Units 14:10 14:10 14:10 WBC 10.7 (4.5-11.0) K/uL RBC 5.37 (4.30-5.90) M/uL Hgb 16.1 H D (12.0-15.0) g/dL Hct 48.4 (40.0-54.0) % MCV 90 (80-98) fL MCH 30 (27-31) pg MCHC 33 (32-36) % Plt Count 377 (150-400) K/uL Neut % (Auto) 65 (36-66) % Lymph % (Auto) 14 L (24-44) % [place] % (Auto) 9 H (2-6) % Eos % (Auto) 11 H (2-4) % Baso % (Auto) 1 (0-1) % ESR 39 H (0-20) mm/hr Sodium 135 L (140-148) mmol/L Potassium 4.1 (3.6-5.2) mmol/L Chloride 98 L (100-108) mmol/L Carbon Dioxide 30 (21-32) mmol/L Anion Gap 11.1 (5.0-14.0) mmol/L BUN 13 (7-18) mg/dL Creatinine 1.1 (0.8-1.3) mg/dL Est Cr Clr Drug Dosing 63.60 mL/min Estimated GFR (MDRD) > 60 (>60) Glucose 113 H (74-106) mg/dL Lactic Acid 1.3 (0.4-2.0) mmol/L Calcium 9.7 (8.5-10.1) mg/dL Total Bilirubin 0.4 (0.2-1.0) mg/dL AST 23 (15-37) U/L ALT 24 (12-78) U/L Alkaline Phosphatase 116 (46-116) U/L C-Reactive Protein (0.0-0.3) mg/dL Total Protein 8.6 H (6.4-8.2) g/dL Albumin 3.7 (3.4-5.0) g/dL Globulin 4.9 H (2.3-3.5) g/dL Albumin/Globulin Ratio 0.8 L (1.2-2.2) Urine Color Urine Appearance Urine pH (4.5-8.0) Ur Specific [place] (1.008-1.030) Urine Protein (NEGATIVE) mg/dL Urine Glucose (UA) (NEGATIVE) mg/dL Urine Ketones (NEGATIVE) mg/dL Urine Occult Blood (NEGATIVE) Urine Nitrite (NEGAITVE) Urine Bilirubin (NEGATIVE) Urine Urobilinogen (NORMAL) mg/dL Ur Leukocyte Esterase (NEGATIVE) Urine RBC (0-5) Urine WBC (0-5) Ur Epithelial Cells Amorphous Sediment Urine Bacteria Urine Mucus 01/26/17 01/26/17 Range/Units 14:10 15:01 WBC (4.5-11.0) K/uL RBC (4.30-5.90) M/uL Hgb (12.0-15.0) g/dL Hct (40.0-54.0) % MCV (80-98) fL MCH (27-31) pg MCHC (32-36) % Plt Count (150-400) K/uL Neut % (Auto) (36-66) % Lymph % (Auto) (24-44) % [place] % (Auto) (2-6) % Eos % (Auto) (2-4) % Baso % (Auto) (0-1) % ESR (0-20) mm/hr Sodium (140-148) mmol/L Potassium (3.6-5.2) mmol/L Chloride (100-108) mmol/L Carbon Dioxide (21-32) mmol/L Anion Gap (5.0-14.0) mmol/L BUN (7-18) mg/dL Creatinine (0.8-1.3) mg/dL Est Cr Clr Drug Dosing mL/min Estimated GFR (MDRD) (>60) Glucose (74-106) mg/dL Lactic Acid (0.4-2.0) mmol/L Calcium (8.5-10.1) mg/dL Total Bilirubin (0.2-1.0) mg/dL AST (15-37) U/L ALT (12-78) U/L Alkaline Phosphatase (46-116) U/L C-Reactive Protein 5.11 H (0.0-0.3) mg/dL Total Protein (6.4-8.2) g/dL Albumin (3.4-5.0) g/dL Globulin (2.3-3.5) g/dL Albumin/Globulin Ratio (1.2-2.2) Urine Color Yellow Urine Appearance Clear Urine pH 7.0 (4.5-8.0) Ur Specific [place] 1.005 L (1.008-1.030) Urine Protein Negative (NEGATIVE) mg/dL Urine Glucose (UA) Normal (NEGATIVE) mg/dL Urine Ketones Negative (NEGATIVE) mg/dL Urine Occult Blood Negative (NEGATIVE) Urine Nitrite Negative (NEGAITVE) Urine Bilirubin Negative (NEGATIVE) Urine Urobilinogen Normal (NORMAL) mg/dL Ur Leukocyte Esterase Negative (NEGATIVE) Urine RBC Not seen (0-5) Urine WBC 0-5 (0-5) Ur Epithelial Cells Rare Amorphous Sediment Not seen Urine Bacteria Few Urine Mucus Not seen Departure - Departure Time of Disposition: 16:08 Disposition: Home, Self-Care 01 Condition: Good Clinical Impression: Cellulitis of knee, left - Discharge Information Forms: ED Department Discharge Additional Instructions: We are starting her on Keflex and antibiotic she will take twice a day for [address] Brandt's office should be calling you on Saturday. If you don't hear from them by 10:00 I would give them a call. If at any point you having trouble with range of motion of that knee he'll need to return to the emergency room immediately for another evaluation. - My Orders Last 24 Hours: My Active Orders 01/26/17 13:43 Chest 2V [CR] Stat 01/26/17 13:46 Knee 3V Lt [CR] Stat 01/26/17 15:54 CULTURE BLOOD [BC] Stat 01/26/17 15:55 CULTURE BLOOD [BC] Stat - Assessment/Plan Last 24 Hours: My Active Orders 01/26/17 13:43 Chest 2V [CR] Stat 01/26/17 13:46 Knee 3V Lt [CR] Stat 01/26/17 15:54 CULTURE BLOOD [BC] Stat 01/26/17 15:55 CULTURE BLOOD [BC] Stat
--- NOTE | 2017-01-28 10:57 | CR ---
Chest 2V FINDINGS: The heart and vascular structures are normal in appearance. No infiltrates or effusions ar e demonstrated. The skeletal structures are unremarkable. IMPRESSION: Negative exam.
--- NOTE | 2017-01-28 11:07 | CR ---
Knee 3V Lt FINDINGS: The patient is status post knee arthroplasty. The prosthetic components appear well-aligne d and seated. There is a small amount of air and fluid within the joint space. IMPRESSION: Status post knee arthroplasty without evidence for complication.
== END 2017-01-26 16:38 | disposition home or self-care (01) ==
LOC: JP.ED 12:59
DX: L03.116 Cellulitis of left lower limb (principal); I10 Essential (primary) hypertension; E78.00 Pure hypercholesterolemia, unspecified; K21.9 Gastro-esophageal reflux disease without esophagitis; E66.9 Obesity, unspecified; Z68.32 Body mass index [BMI] 32.0-32.9, adult; Z85.46 Personal history of malignant neoplasm of prostate; Z79.82 Long term (current) use of aspirin; Z79.899 Other long term (current) drug therapy; Z98.49 Cataract extraction status, unspecified eye; Z96.651 Presence of right artificial knee joint; Z98.890 Other specified postprocedural states; Z88.2 Allergy status to sulfonamides; Z91.010 Allergy to peanuts; Z91.013 Allergy to seafood
CPT/HCPCS: 36415; 71020; 71020-26; 73562-26-LT; 73562-LT; 80053; 81001; 83605; 85025; 85651; 86140; 87040; 99284